=== PATIENT | female | born 1975 | race Two or more races ===

== ENCOUNTER 2024-12-01 08:11 | Outpatient (AMB) | payer OTHER, SELFPAY ==
[2024-12-01 08:29] VITALS: BP 103/69; PULSE 78; RESP 18; TEMP 36.6; O2SAT 97; BMI 52.5
--- NOTE | 2024-12-01 08:29 | PD.ORTHCLVIS ---
Vital signs 12/01/24 08:29 Height 1.55 m Height Method Stated Weight 126.184 kg Weight Measurement Method Standing Scale BMI 52.5 BP 103/69 Blood Pressure Source Automatic Cuff Blood Pressure Location Right Upper Arm Position Sitting Respiration 18 Pulse 78 Pulse Source Monitor Temp 97.8 F Temp Source Temporal Artery Scan Pulse Oximetry (%) 97 Oxygen Delivery Method Room Air Med/Allergies Allergies & Medications Allergies codeine Allergy (Verified 12/01/24 08:32) HIVES Medication Reconciliation divalproex 250 mg tablet,delayed release 250 mg PO BID 12/01/24 [History Confirmed 12/01/24] divalproex 500 mg tablet,delayed release 500 mg PO BID 12/01/24 [History Confirmed 12/01/24] gabapentin 300 mg capsule 300 mg PO QDAY 12/01/24 [History Confirmed 12/01/24] hydroxyzine HCl 50 mg tablet 50 mg PO BID 12/01/24 [History Confirmed 12/01/24] prazosin 2 mg capsule 2 mg PO BID 12/01/24 [History Confirmed 12/01/24] trazodone 150 mg tablet 150 mg PO QDAY 12/01/24 [History Confirmed 12/01/24] venlafaxine 150 mg capsule,extended release 24 hr 150 mg PO QDAY 12/01/24 [History Confirmed 12/01/24] Exam Exam Patient is in no acute distress and is cooperative with the examination today. Patient has a normal mood and affect. Breathing is nonlabored. In no respiratory distress. Bilateral extremities were evaluated and demonstrates sensation intact to light touch. Palpable pedal pulses are present. No significant edema is present. Right knee incision is clean dry intact. Range of motion 0 to 110 degrees. Knee feels stable varus valgus stress as well as AP translation. She is tender to palpation diffusely mildly Assessment and Plan Problem List (1) Arthritis of right knee: Status: Acute Plan: Vira is a pleasant 49-year-old female with a recent total knee replacement on the right. She still has some persistent pain but is overall doing well. Her range of motion is preserved. We will get an ESR and CRP to rule out infection as well as get new x-rays. It does appear to be very stable on exam Office Procedures GNS Level of Care Nursing/Assessment Patient Status: Initial/New Patient Nursing Assessment/Reassesment: Medication Reconciliation, Update PMH in EMR and Vital Signs Coordination of Care: Complex Care and Chronic Disease 1-5, Education Complex Pt/Fam, Consent,records obtained, informed consent, Results/Orders obtained and Staff clarify orders New Patient Charge New Patient Point Assignment: 1094 New Patient Point Charge: [employer] Level 3 ([id number]) MA Intake Visit Data Collection New Patient or Established: New Patient (never been to [facility]) Reason for Visit:: R TKA Seen by Clinical Staff ONLY (RN/MA): No Verbal consent obtained for Telemed visit?: No Gelatin Powder Mixer Required: No PCP or OBGYN visit in last 3 months: Yes Hx Now: No Do You Feel Safe at Home: Yes Authorities Contacted: N/A Questionairres Past Medical History Past Medical History Have you ever been diagnosed with any of the following: Respiratory Problems Smoking: Yes Smoking Cessation Counseling: No Smoking Exposure: Yes Surgical History Total Knee Replacement: Yes Subjective Visit Visit for: new patient and knee Immunization / Flu Flu Vaccine in the Last 12 Months: Yes Flu Vaccine Exclusion Criteria: Already Received History of Present Illness Chief complaint: R TKA DONE A YEAR AGO BY DR. DE LA O Date of injury / onset of symptoms: year ago Date of 1st surgery (if applicable): year ago 49 year female had right knee surgery a year performed by Dr. De La O. Due to orthopedic surgeon becoming out of network patient was unable to follow up and never started physical therapy. Currently she is complaining of knee pain that comes and goes denies needing ambulatory device to help her walk. She reports there are some days when the pain is great and some nasal are still hurts. She is on fibromyalgia. She did have a recent weight gain as well Personal History Occupation: unemployed Red flag PMH: smoker and BMI BMI Counceling provided: Yes Pain Pain level (0-10): 5 Pain duration: comes and goes Pain location: inside (medial), outside (lateral) and anterior Pain quality: sharp, burning and tingling Pain timing: stairs Associated signs & symptoms: numbness Ambulatory data Ambulatory device: none Treatments Improvement with previous injections: No Improvement with PT: No Improvement with NSAIDS: no Review of Systems Review of Systems: All systems negative unless otherwise noted in HPI.
== END 2024-12-01 09:01 | disposition home or self-care (01) ==
PROVIDERS: Supervising Provider Orthopaedic Surgery Adult Reconstructive Orthopaedic Surgery; Visit Provider Orthopaedic Surgery Adult Reconstructive Orthopaedic Surgery
DX: M17.11 Unilateral primary osteoarthritis, right knee (principal); Z96.651 Presence of right artificial knee joint
CPT/HCPCS: 99203; G0463

== ENCOUNTER 2025-02-04 09:45 | Outpatient (AMB) | payer MEDICARE, SELFPAY ==
[2025-02-04 10:09] VITALS: BP 180/97; PULSE 74; RESP 19; TEMP 36.4; O2SAT 93; BMI 52.2
--- NOTE | 2025-02-04 10:09 | ORTHONT_ITS ---
Vital signs 02/04/25 10:09 Height 1.55 m Height Method Stated Weight 125.362 kg Weight Measurement Method Standing Scale BMI 52.2 BP 180/97 H Blood Pressure Source Automatic Cuff Blood Pressure Location Left Upper Arm Position Sitting Respiration 19 Pulse 74 Pulse Source Monitor Temp 97.5 F Temp Source Temporal Artery Scan Pulse Oximetry (%) 93 L Oxygen Delivery Method Room Air Med/Allergies Allergies & Medications Allergies codeine Allergy (Verified 02/04/25 10:10) HIVES Medication Reconciliation divalproex 250 mg tablet,delayed release 250 mg PO BID 12/01/24 [History Confirmed 02/04/25] divalproex 500 mg tablet,delayed release 500 mg PO BID 12/01/24 [History Confirmed 02/04/25] gabapentin 300 mg capsule 300 mg PO QDAY 12/01/24 [History Confirmed 02/04/25] hydroxyzine HCl 50 mg tablet 50 mg PO BID 12/01/24 [History Confirmed 02/04/25] prazosin 2 mg capsule 2 mg PO BID 12/01/24 [History Confirmed 02/04/25] trazodone 150 mg tablet 150 mg PO QDAY 12/01/24 [History Confirmed 02/04/25] venlafaxine 150 mg capsule,extended release 24 hr 150 mg PO QDAY 12/01/24 [History Confirmed 02/04/25] Exam Exam Patient is in no acute distress and is cooperative with the examination today. Patient has a normal mood and affect. Breathing is nonlabored. In no respiratory distress. Bilateral extremities were evaluated and demonstrates sensation intact to light touch. Palpable pedal pulses are present. No significant edema is present. Right knee incision is clean dry intact. Range of motion 0 to 110 degrees. Knee feels stable varus valgus stress as well as AP translation. She is tender to palpation diffusely mildly X-rays demonstrate cemented total knee replacement in good alignment and position. left knee demonstrates moderate arthritis and joint space Assessment and Plan Problem List (1) Arthritis of right knee: Status: Acute Plan: Vira is a pleasant 49-year-old female with a recent total knee replacement on the right. She still has some persistent pain but is overall doing well. Her range of motion is preserved. Her anti-inflammatory markers are elevated. We will order a knee aspiration. Office Procedures GNS Level of Care Nursing/Assessment Patient Status: Established Patient Nursing Assessment/Reassesment: Medication Reconciliation, Update PMH in EMR and Vital Signs Coordination of Care: Complex Care and Chronic Disease 1-5, Education Complex Pt/Fam, Consent,records obtained, informed consent, Results/Orders obtained and Staff clarify orders Established Patient Charge Established Patient Point Assignment: 95 Established Patient Point Charge: EP Level 3 (80-115) MA Intake Visit Data Collection New Patient or Established: Established Patient (seen at [facility] within 3 years) Reason for Visit:: XRAY RESULTS Employee Training Specialist Required: No PCP or OBGYN visit in last 3 months: Yes Hx Now: No Do You Feel Safe at Home: Yes Authorities Contacted: N/A Questionairres Past Medical History Past Medical History Have you ever been diagnosed with any of the following: Respiratory Problems Smoking: Yes Smoking Cessation Counseling: No Smoking Exposure: Yes Surgical History Total Knee Replacement: Yes Subjective Visit Visit for: follow up visit and x-rays (RESULTS) Immunization / Flu Flu Vaccine in the Last 12 Months: No Flu Vaccine Exclusion Criteria: No Exclusion Criteria History of Present Illness Chief complaint: R TKA DONE A YEAR AGO BY DR. DE LA O Date of injury / onset of symptoms: year ago Date of 1st surgery (if applicable): year ago 49 year female had right knee surgery a year performed by Dr. De La O. Due to ortho pedic surgeon becoming out of network patient was unable to follow up and never started physical therapy. Currently she is complaining of knee pain that comes and goes denies needing ambulatory device to help her walk. She reports there are some days when the pain is great and some nasal are still hurts. She has fibromyalgia. She did have a recent weight gain as well Personal History Occupation: unemployed Red flag PMH: smoker and BMI BMI Counceling provided: Yes Pain Pain level (0-10): 7 Pain duration: CONSTANT Pain location: anterior Pain quality: dull and aching Pain timing: increases with activity Associated signs & symptoms: none Ambulatory data Ambulatory device: none Treatments Improvement with previous injections: No Improvement with PT: No Improvement with NSAIDS: no Review of Systems Review of Systems: All systems negative unless otherwise noted in HPI.
== END 2025-02-04 10:34 | disposition home or self-care (01) ==
LOC: HODSRG 09:45
PROVIDERS: Supervising Provider Orthopaedic Surgery Adult Reconstructive Orthopaedic Surgery; Visit Provider Orthopaedic Surgery Adult Reconstructive Orthopaedic Surgery
DX: M17.11 Unilateral primary osteoarthritis, right knee (principal); M79.7 Fibromyalgia
CPT/HCPCS: 99213; G0463

== ENCOUNTER 2025-04-27 14:43 | Outpatient (AMB) | payer MEDICARE, SELFPAY ==
[2025-04-27 14:56] VITALS: BP 130/82; PULSE 96; RESP 18; TEMP 36.3; O2SAT 95; BMI 51.6
--- NOTE | 2025-04-27 14:56 | PD.ORTHCLVIS ---
Vital signs 04/27/25 14:56 Height 1.55 m Height Method Stated Weight 123.972 kg Weight Measurement Method Standing Scale BMI 51.6 BP 130/82 Blood Pressure Source Automatic Cuff Blood Pressure Location Right Upper Arm Position Sitting Respiration 18 Pulse 96 Pulse Source Monitor Temp 97.3 F Temp Source Temporal Artery Scan Pulse Oximetry (%) 95 Oxygen Delivery Method Room Air Med/Allergies Allergies & Medications Allergies codeine Allergy (Verified 04/27/25 15:07) HIVES Medication Reconciliation divalproex 250 mg tablet,delayed release 250 mg PO BID 12/01/24 [History Confirmed 04/27/25] divalproex 500 mg tablet,delayed release 500 mg PO BID 12/01/24 [History Confirmed 04/27/25] gabapentin 300 mg capsule 300 mg PO QDAY 12/01/24 [History Confirmed 04/27/25] hydroxyzine HCl 50 mg tablet 50 mg PO BID 12/01/24 [History Confirmed 04/27/25] prazosin 2 mg capsule 2 mg PO BID 12/01/24 [History Confirmed 04/27/25] trazodone 150 mg tablet 150 mg PO QDAY 12/01/24 [History Confirmed 04/27/25] venlafaxine 150 mg capsule,extended release 24 hr 150 mg PO QDAY 12/01/24 [History Confirmed 04/27/25] Exam Exam Patient is in no acute distress and is cooperative with the examination today. Patient has a normal mood and affect. Breathing is nonlabored. In no respiratory distress. Bilateral extremities were evaluated and demonstrates sensation intact to light touch. Palpable pedal pulses are present. No significant edema is present. Right knee incision is clean dry intact. Range of motion 0 to 110 degrees. Knee feels stable varus valgus stress as well as AP translation. She is tender to palpation diffusely mildly X-rays demonstrate cemented total knee replacement in good alignment and position. left knee demonstrates moderate arthritis and joint space Assessment and Plan Problem List (1) Arthritis of right knee: Status: Acute Plan: Vira is a pleasant 49-year-old female with a recent total knee replacement on the right. She still has some persistent pain but is overall doing well. Her range of motion is preserved. Her anti-inflammatory markers are elevated. Her synovial cell count is negative as well as her Synovasure test. We discussed that weight loss would be recommended. She has gained a significant amount weight since the original surgery we discussed that this can contribute to the pain. Her knee feels great on exam and there is no signs of instability. We have also ruled out infection and her knee looks like there is no aseptic loosening on xray Office Procedures GNS Level of Care Nursing/Assessment Patient Status: Established Patient Nursing Assessment/Reassesment: Medication Reconciliation, Update PMH in EMR and Vital Signs Coordination of Care: Complex Care and Chronic Disease 1-5, Education Complex Pt/Fam, Consent,records obtained, informed consent, Results/Orders obtained and Staff clarify orders Established Patient Charge Established Patient Point Assignment: 95 Established Patient Point Charge: EP Level 3 (80-115) MA Intake Visit Data Collection New Patient or Established: Established Patient (seen at [facility] within 3 years) Reason for Visit:: LAB RESULTS Seen by Clinical Staff ONLY (RN/MA): No Verbal consent obtained for Telemed visit?: No Food And Beverage Server Required: No PCP or OBGYN visit in last 3 months: Yes Hx Now: No Do You Feel Safe at Home: Yes Authorities Contacted: N/A Questionairres Past Medical History Past Medical History Have you ever been diagnosed with any of the following: Respiratory Problems Smoking: Yes Smoking Cessation Counseling: No Smoking Exposure: Yes Surgical History Total Knee Replacement: Yes Subjective Visit Visit for: follow up visit Immunization / Flu Flu Vaccine in the Last 12 Months: No Flu Vaccine Exclusion Criteria: No Exclusion Criteria History of Present Illness Chief complaint: F/U LABS Date of injury / onset of symptoms: year ago Date of 1st surgery (if applicable): year ago 49 year female had right knee surgery a year performed by Dr. Wright. Due to orthopedic surgeon becoming out of network patient was unable to follow up and never started physical therapy. Currently she is complaining of knee pain that comes and goes denies needing ambulatory device to help her walk. She reports there are some days when the pain is great and some nasal are still hurts. She has fibromyalgia. She did have a recent weight gain as well Personal History Occupation: unemployed Red flag PMH: BMI BMI Counceling provided: Yes Pain Pain level (0-10): 6 Pain duration: CONSTANT Pain location: anterior and posterior Pain quality: sharp, dull and aching Pain timing: increases with activity Associated signs & symptoms: none Ambulatory data Ambulatory device: none Treatments Improvement with previous injections: No Improvement with PT: No Improvement with NSAIDS: no Review of Systems Review of Systems: All systems negative unless otherwise noted in HPI.
== END 2025-04-27 15:16 | disposition home or self-care (01) ==
LOC: HODSRG 14:43
PROVIDERS: Supervising Provider Orthopaedic Surgery Adult Reconstructive Orthopaedic Surgery; Visit Provider Orthopaedic Surgery Adult Reconstructive Orthopaedic Surgery
DX: M17.11 Unilateral primary osteoarthritis, right knee (principal); Z96.651 Presence of right artificial knee joint
CPT/HCPCS: 99213; G0463